=== PATIENT | male | born 1960 | race Caucasian/White ===

== ENCOUNTER → 2019-03-23 | Outpatient (CLI) | payer MEDICAID | LOC: OD 10:40 | PROVIDERS: ATTEND Otolaryngology | DX: J30.9 Allergic rhinitis, unspecified (principal) | CPT/HCPCS: 36415; 82785; 86003 ==

== ENCOUNTER → 2019-04-05 | Outpatient (CLI) | payer MEDICAID ==
--- NOTE | 2019-04-05 14:55 | RADIOLOGY REPORT (SQ) ---
EXAM DESCRIPTION: CT SINUSES FOR ENT COMPLETED DATE/TIME: 04/05/2019 2:20 pm REASON FOR STUDY: J32.4 CHRONIC PANSINUSITIS J32.4 CHRONIC PANSINUSITIS COMPARISON: None. TECHNIQUE: Noncontrast scanning through the paranasal sinuses using bone algorithm. Reconstructed MPR images reviewed. All images stored on PACS. All CT scanners at this facility use dose modulation, iterative reconstruction, and/or weight based d osing when appropriate to reduce radiation dose to as low as reasonably achievable (ALARA). [facility]: Dose Right [facility]: CareDose [facility]: Dose Right [facility]: Teradose 4D [facility]: [employer]bird RADIATION DOSE: 47mGy. LIMITATIONS: None. FINDINGS: Right sinuses and drainage pathways: Post-surgical changes: None. Frontal sinus: Normal. Frontoethmoidal Recess: Normal. Anterior Ethmoid Sinuses: Normal. Posterior Ethmoid Sinuses: Normal. Sphenoid Sinus: Normal. Sphenoethmoidal Recess: Normal. Maxillary Sinus: Small mucous or serous retention cyst floor right maxillary sinus. Ostiomeatal Complex: Normal. Left Sinuses and Drainage Pathways: Post-Surgical Changes: None. Frontal Sinus: Normal. Frontoethmoidal Recess: Normal. Anterior Ethmoid Sinuses: Normal. Posterior Ethmoid Sinuses: Normal. Sphenoid Sinus: Normal. Sphenoethmoidal Recess: Normal. Maxillary Sinus: Normal. Ostiomeatal Complex: Normal. Saida cells on the left. Right Olfactory Fossa: No polyps. Left Olfactory Fossa: No polyps. Middle Turbinate Charissa Bullosa: No. Paradoxical Middle Turbinate: No. Atelectatic Uncinated Process: No. Frontal Aguila Cell Type I: On the left Frontal Aguila Cell Type II: No. Interfrontal Sinus Septal Cell: None. Supra-Orbital Ethmoid: On the left Frontal Bullar Cell: None. Suprabullar Bullar Cell: None. Sphenoethmoidal (Onodi) Cell: Bilateral. Pneumatization of the Anterior Clinoid Processes: No Hypoplastic Maxillary Sinus: None. Osteoneogenesis: None. Bone Dehiscence:None. Nasal Cavity: Normal. Nasal Septum: Anatomic Variants: Right Vidian Canal: Normal. Left Vidian Canal: Normal. IMPRESSION: NO EVIDENCE OF ACUTE OR CHRONIC SINUSITIS. TECHNICAL DOCUMENTATION: JOB ID: [id number] Quality ID # [id number]: Final reports with documentation of one or more dose reduction techniques (e.g., Au tomated exposure control, adjustment of the mA and/or kV according to patient size, use of iterative reconstruction technique) 2010 [employer]- All Rights Reserved Reading location - IP/workstation name: [email or web address]
== END ==
LOC: RAD 13:54
PROVIDERS: ATTEND Otolaryngology
DX: J32.4 Chronic pansinusitis (principal)
CPT/HCPCS: 70486